=== PATIENT | female | born 1990 | race Two or more races ===

== ENCOUNTER 2020-08-14 05:25 | Outpatient (RCR) | payer MEDICARE, OTHER ==
[2020-08-14] VITALS (8 sets, daily range): BP systolic 122–140; BP diastolic 67–95
[~2020-08-14] VITALS: Ht 160 cm; Wt 85.3 kg
[2020-08-14] MEDS ORDERED: NS 500ML ONE (05:26)
[2020-08-14] MEDS ORDERED: Methohexita Syr 100mg/10ml IVP ONE (05:26)
[2020-08-14] MEDS ORDERED: Succinylcholine 20mg/ml 10ml vial ONE (05:26)
== END 2020-08-25 | disposition home or self-care (01) ==
LOC: ECT 05:25
DX: F25.0 Schizoaffective disorder, bipolar type (principal)
CPT/HCPCS: 90870; J0330; J7040

== ENCOUNTER 2020-09-11 06:09 | Outpatient (RCR) | payer MEDICARE, OTHER ==
[~2020-09-11] VITALS: Ht 30.5 cm; Wt 0.5 kg
[2020-09-11] VITALS (7 sets, daily range): BP systolic 123–133; BP diastolic 69–95
[2020-09-11] MEDS ORDERED: Methohexita Syr 100mg/10ml IVP ONE (06:10)
[2020-09-11] MEDS ORDERED: Succinylcholine 20mg/ml 10ml vial ONE (06:10)
== END 2020-09-22 | disposition home or self-care (01) ==
LOC: ECT 06:09
DX: F25.0 Schizoaffective disorder, bipolar type (principal)
CPT/HCPCS: 90870; J0330